=== PATIENT | male | born 2005 | race Caucasian/White ===

== ENCOUNTER 2024-03-11 15:36 | Emergency (ER) | payer OTHER, SELFPAY ==
[2024-03-11 15:40] VITALS: BP 138/71; PULSE 57; RESP 18; TEMP 36.8; O2SAT 98; BMI 22.8
--- NOTE | 2024-03-11 15:59 | ED.EXTPRO ---
HPI - Extremity Problem General Chief complaint: Extremity Injury, Upper Stated complaint: needs a cast put on his arm.. Time Seen by Provider: 03/11/24 15:55 Source: patient Mode of arrival: ambulatory Limitations: no limitations History of Present Illness HPI Narrative: 18 yold male presents to the ED stating he was informed to get cast placement on left metacrapal fracture that occurred yesterday. Patient was seen in [facility] yesterday and fracture was caused by playing rugby.. Patient had splint placed by [facility] who then informed he needs follow-up with cast placement. Patient came to the ED because orthopedic clinic were closed today. Patient states no new trauma, numbness/tingling of extremity, swelling, bluish black discoloration, chest pain, shortness of breath, or any other symptom. Related Data Allergies Allergy/AdvReac Type Severity Reaction Status Date / Time No Known Allergies Allergy Verified 03/11/24 15:41 Review of Systems Review of Systems: known hand fracture Yes all other systems are reviewed and are negative PMFSH Social History Social History Advance Directives: No Advance Directives Information Provided: No Do you have a plan to hurt others: No Plan Physical Exam Vital Signs: Vital Signs: Last Vital Signs Temp 98.3 F 03/11/24 16:13 Pulse 57 03/11/24 16:13 Resp 18 03/11/24 16:13 BP 138/71 03/11/24 16:13 Pulse Ox 98 03/11/24 16:13 O2 Del Method Room Air 03/11/24 16:13 BMI result Body Mass Index 22.8 Const: Orientation/consciousness: oriented to person, oriented to place, oriented to time and patient oriented x3 HEENT: Head: Yes normal to inspection, Yes No palpable skull fracture present, Yes normocephalic and Yes atraumatic Ears: hearing grossly normal bilaterally, external ears normal, TM's normal bilaterally, TM normal on the right, TM normal on the left, EAC's normal, mastoids normal and no periauricular adenopathy Eyes: General: appearance normal, both eyes and all related structures Neck: Neck: Yes normal visual inspection, Yes full ROM, Yes no lymphadenopathy, Yes no meningeal signs, Yes trachea midline, Yes supple, No anterior neck swelling and No tender Chest: Chest palpation & inspection: normal inspection of the chest and normal palpation of entire chest wall Resp: Effort & Inspection: normal respiratory effort and able to speak in complete sentences Auscultation: clear to auscultation bilaterally Cardio: Jugular venous distension: no JVD Heart sounds: S1 normal heart sound present and S2 normal heart sound present GI: Inspection: Yes normal to inspection Palpation (GI): Soft to palpation, not firm, nontender, no guarding and not rigid : General: No CVA tenderness and Yes no CVA tenderness Back/Spine/Pelvis: Back: no CVA tenderness, No CVA tenderness and No back tenderness Skin: General skin exam: no rashes or lesions noted, elasticity normal and turgor normal Neuro: General: oriented to person, oriented to place, oriented to time, patient oriented x3, gait normal, tone normal, moves all extremities, Normal light touch and pain sensation, no meningeal signs, no focal motor deficits, CN's II-XI intact bilaterally and normal sensation to monofilament Extrem: Other: Patient has ulnar gutter splint on left upper extremity. Fingers has capillary refill. Fingers are normal color. Brachial pulses intact. Patient denies tingling. Motor exam limited due to pain. Vascular neuro exam intact. Extremity is normal temperatur[place]. Course Course Course Narrative: RME: 18 yold male with known left metacarpal frature presents to the ED because he was informed by [place] [facility] that he would need a cast placement. patient is in splint. Jose Alberto came to the ED because there was no ortho clnic open today. Patient states no new trauma. Medical Decision Making Medical Decision Making MDM Narrative: 18-year-old male with known left hand fracture thinking he needs cast placement to be done today. Patient does not need cast placement. Patient informed splint is properly placed and necessary for acute fracture helps with healing. Patient referred for orthopedic outpatient follow-up. Negative for signs of compartment syndrome. No need for new x-ray. Differential Diagnosis Differential Diagnoses: The differential diagnosis associated with the presentation includes (hand fracture) Admission/Observation Consideration of admission/observation: Escalation of care including admission/observation considered Independent Interpretation I performed an independent interpretation of an: Plain [facility] Impression Discussion of test interpretation with radiology: I have reviewed the radiologist's reading. Independent Historian Clinical information obtained from an independent historian. History obtained from or confirmed by: Other (patient) External Record Review External record reviewed: Other (prior visits) Prescription Management I considered prescription management with: Pain Medication Discharge Plan Discharge Clinical Impression: Fracture of metacarpal bone of left hand Patient Disposition: Home, Self-Care Instructions: Hand Fracture (ED) Additional Instructions: Needs outpatient follow-up with orthopedic surgeon. Splint will remain on. Presently there is no signs of neuro or vascular compromise of left upper extremity. Return to the ED immediately for severe pain, bluish black discoloration of fingertips, numbness, tingling, or any other concerning symptoms. Referrals: [facility] [Provider Group] (Left 4th finger metacarpal fracture.) Stand Alone Forms: Work/School Release Interventions: ED Discharge Assessment Last Done: 03/11/24 16:13 Discharge Date/Time: 03/11/24 16:14 Print Language: Sinhala
[2024-03-11 16:13] VITALS: BP 138/71; PULSE 57; RESP 18; TEMP 36.8; O2SAT 98
== END 2024-03-11 16:14 | disposition home or self-care (01) ==
PROVIDERS: Emergency Provider Student in an Organized Health Care Education/Training Program
DX: S62.309D Unspecified fracture of unspecified metacarpal bone, subsequent encounter for fracture with routine healing (principal); X58.XXXD Exposure to other specified factors, subsequent encounter
CPT/HCPCS: 99282